=== PATIENT | female | born 1985 | race Hispanic/Latino ===

== ENCOUNTER 2017-04-28 18:24 | Emergency (ER) | payer BC ==
[2017-04-28 18:30] VITALS: BP 152/80; PULSE 112; RESP 16; TEMP 96.8; O2SAT 100
[2017-04-28] MEDS ORDERED: Piperacillin/Tazobact 3.375 GM in Sodium Chloride 0.9% 100 ML IVPB STA (18:43)
--- NOTE | 2017-04-28 19:10 | ED PDOC ---
HPI: General Adult Time Seen by Provider: 04/28/17 18:34 Chief Complaint (Nursing): Breast Problem History Per: Patient Additional Complaint(s): Pt. states 1.5 weeks ago she had a "galactocele" drained by IR on her L breast. She was prescribed Bactrim prophylactically which she has been taking but states over the past 4 days she's develoepd redness and swelling over the area. She was subsequently prescribed Keflex yesterday but today area began to drain pus prompting ED visit. Of note, pt. is actively . Denies fever, nipple discharge. Past Medical History Reviewed: Historical Data, Nursing Documentation, Vital Signs Vital Signs: Last Vital Signs Temp 96.8 F L 04/28/17 18:29 Pulse 112 H 04/28/17 18:29 Resp 16 04/28/17 18:29 BP 152/80 H 04/28/17 18:29 Pulse Ox 100 04/28/17 19:55 - Family History Family History: States: No Known Family Hx - Home Medications Home Medications: Ambulatory Orders Medication Instructions Recorded Amoxicillin/Clavulanate [Augmentin 1 tab PO Q8 #30 tab 04/28/17 500 MG-125 MG] - Allergies Allergies/Adverse Reactions: Allergies Allergy/AdvReac Type Severity Reaction Status Date / Time NSAIDS (Non-Steroidal Allergy RASH Verified 04/28/17 18:39 Anti-Inflamma Review of Systems ROS Statement: Except As Marked, All Systems Reviewed And Found Negative Physical Exam - Physical Exam Appears: Positive for: Well, Non-toxic, No Acute Distress Skin: Positive for: Normal Color, Warm. Negative for: Rash Eye Exam: Positive for: Normal appearance Cardiovascular/Chest: Positive for: Other (L breast at lower outer position with moderate erythema, induration, and active yellow discharge from open wound at 3 o'clock position; e) Extremity: Positive for: Normal ROM Neurologic/Psych: Positive for: Alert, Oriented - Laboratory Results Result Diagrams: 04/28/17 19:25 04/28/17 19:25 - ECG O2 Sat by Pulse Oximetry: 100 - Progress ED Course And Treament: Labs ordered. Zosyn IV, vancomycin IV ordered. Pt. requesting plastic surgery consult. Pt. evaluated by Dr. Crespo, plastic surgery, who performed I&D and requests that pt. be prescribed Augmentin. Disposition - Clinical Impression Clinical Impression: Abscess of breast - Patient ED Disposition Is Patient to be Admitted: Transfer of Care (Signed out to Gary ACHARYA pending lab results and final disposition.) - Disposition Disposition Time: 20:00 Condition: STABLE Prescriptions: Amoxicillin/Clavulanate [Augmentin 500 MG-125 MG] 1 tab PO Q8 #30 tab Forms: [employer] (Amharic)
[2017-04-28 19:33] LABS: VENOUS BLOOD GAS BASE EXCESS -1.1 mmol/L (0.0-2.0); VENOUS BLOOD GAS PCO2 42 mmHg (40-60); VENOUS BLOOD PH 7.37 (7.32-7.43)
[2017-04-28 19:34] LABS: BASO # 0.1 K/uL (0.0-0.2); BASO % 0.5 % (0.0-2.0); EOS % 0.1 % (0.0-4.0); HEMATOCRIT 37.8 % (34.0-47.0); LYMPH # 1.8 K/uL (1.0-4.3); LYMPH % 13.5 % (20.0-40.0); MEAN CELL VOLUME 88.8 fl (81.0-99.0); MEAN CORPUSCULAR HGB CONC 33.8 g/dL (33.0-37.0); MEAN PLATELET VOLUME 8.6 fl (7.2-11.7); MONO # 0.8 K/uL (0.0-0.8); MONO % 5.7 % (0.0-10.0); NEUT # 10.9 K/uL (1.8-7.0); NEUT % 80.2 % (50.0-75.0); NRBC % 0.1 % (0.0-0.0); RED CELL DISTRIBUTION WIDTH 13.9 % (11.5-14.5); WHITE BLOOD COUNT 13.5 K/uL (4.8-10.8)
--- NOTE | 2017-04-28 21:04 | ED PDOC ---
- Laboratory Results Result Diagrams: 04/28/17 19:25 04/28/17 20:47 - ECG O2 Sat by Pulse Oximetry: 100 Medical Decision Making Medical Decision Making: Case endorsed to headline writer from PATRIZIA Pereira at 1999 pending IV Antibiotics and diagnostic review Zosyn IV, vancomycin IV being administered Dr. Crespo presented to see and evaluate Pt at bedside. See consult note. 2149- Pt doing well on re-eval, no complaints of pain. IV Rocephin complete, Vanco being administered. Pt remains afebrile on re-eval. stable for discharge Disposition - Clinical Impression Clinical Impression: Abscess of breast - POA Present On Arrival: None - Disposition Referrals: Yvon Crespo MD [Medical Doctor] - Disposition: Routine/Home Disposition Time: 21:52 Condition: STABLE Prescriptions: Amoxicillin/Clavulanate [Augmentin 500 MG-125 MG] 1 tab PO Q8 #30 tab Ibuprofen [Motrin] 600 mg PO Q6 #20 tab Forms: [employer] (Fijian)
[2017-04-28 21:05] LABS: ALB/GLOB RATIO 1.2 (1.0-2.1); ALKALINE PHOSPHATASE 103 U/L (38-126); ALT/SGPT 33 U/L (9-52); AST/SGOT 21 U/L (14-36); BILIRUBIN,TOTAL 0.4 mg/dl (0.2-1.3); BLOOD UREA NITROGEN 9 mg/dl (7-17); CALCIUM 9.4 mg/dL (8.4-10.2); CARBON DIOXIDE 22 mmol/L (22-30); CHLORIDE 104 mmol/L (98-107); GFR AFRICAN-AMERICAN > 60; GLUCOSE,RANDOM 95 mg/dL (65-105); POTASSIUM 3.9 MMOL/L (3.6-5.0); SODIUM 139 mmol/l (132-148)
--- NOTE | 2017-05-01 13:26 | OP ---
PROCEDURE DATE: 04/28/2017 PREOPERATIVE DIAGNOSES: 1. Left breast mastitis. 2. Left breast abscess. POSTOPERATIVE DIAGNOSES: 1. Left breast mastitis. 2. Left breast abscess. PROCEDURE PERFORMED: 1. Incision and drainage of deep, complicated left breast abscess. 2. Exploration of left breast. 3. Debridement of devitalized skin of left breast. SURGEON: Yvon Crespo MD. TYPE OF ANESTHESIA: Local. INDICATION FOR PROCEDURE: Please refer to my separately dictated ER consultation for history and physical. DESCRIPTION OF PROCEDURE: A 0.5% Marcaine with 1% lidocaine plain was used in a field block as well as locally in the left breast as IV pain medicine was administered. The area was then prepped and draped in the usual clean and sterile manner and the area of attenuated thin skin that was devitalized, I made an incision with a 15 blade. I debrided the skin edges, which were nonviable with scissor technique. Pus came out. I then used a blunt clamp and I spread in all different directions and brought up any induration. More pus came out. Wound cultures were sent after thoroughly exploring and making the incision larger to explore with a scissor and debriding and performing a deep incision and drainage. I then packed the wound with half-inch iodoform packing and placed 4x4's and ABDs. The patient tolerated the procedure well, was given IV antibiotics and then discharged home from the emergency room with double oral antibiotics. Postop wound care, limitation of physical activities and the fact there will be scarring, the prognosis of which is unknown, the need to follow up with me or someone else in a few days and have the packing removed in 2 days and to take all antibiotics and to consult with the SHIRRING TENDER for when she can breastfeed were discussed and all questions were answered. Yvon Crespo MD
--- NOTE | 2017-05-01 14:29 | CON ---
DATE: 04/28/2017 EMERGENCY ROOM CONSULTATION HISTORY OF PRESENT ILLNESS: This is a 32-year-old healthy female who is 3 months' who presented to the emergency room for left breast abscess. The ER staff consulted me for this abscess, that is why I came in to evaluate and treat the patient. On history, the patient states that she had a galactocele that was drained under ultrasound guidance 7 days ago and she has been starting to get a little bit red. She has been on Bactrim antibiotics for 4 days. The erythema got worse and was more fluctuant and more painful, so she came to the ER. ER staff consulted me. PHYSICAL EXAMINATION: Left breast, there was about a 10 x 10 cm erythema and fluctuance as well as induration to the lateral aspect at 3 o'clock of her nipple. I explained to her she has an abscess and mastitis and she would benefit from drainage after local anesthesia. I told her that after I drain it, I will send wound cultures, I will pack the wound. 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 I also recommended that the patient consult her efficiency engineer and cuff setter overlock for when she should resume . My recommendation was for her to use a breast pump on both breasts and not use the milk while she has an active infection and she is on antibiotics. She understood this and wished to proceed. I will now dictate a separate operative report. Yvon Crespo MD
== END 2017-04-28 23:49 | disposition home or self-care (01) ==
LOC: H.ER 18:24
DX: N61.1 Abscess of the breast and nipple (principal)
CPT/HCPCS: 10060; 80053; 81025; 82803; 85025; 87040; 87070; 96374; 96375; 99283; J1170; J2405; J2543